=== PATIENT | female | born 1985 | race Two or more races ===

== ENCOUNTER 2017-08-07 14:14 | Emergency (ER) | payer SELFPAY ==
[~2017-08-07] VITALS: Ht 154.9 cm; Wt 79.4 kg
--- NOTE | 2017-08-07 14:35 | NUR ---
BBRA FROM HOME FOR VB, STARTED YESTERDAY S/P fall : 6 WEEKS . NAD NOTED, VSS, RESP EVEN AND UNLABORED, PT PUT ON HOSPITAL GOWN AND MONITOR, WAITING FOR MD OBRIEN.
--- NOTE | 2017-08-07 14:40 | NUR ---
CALLED [facility] [employer] [facility] [employer] [employer]PER[employer] FOR CONSULT
[2017-08-07 14:53] LABS: BASOPHILS % (AUTO) 0.4 % (0.0-2.0); EOSINOPHILS % (AUTO) 1.1 % (0.0-6.0); HEMATOCRIT 41 % (33-45); HEMOGLOBIN 13.9 g/dL (11.5-14.8); LYMPHOCYTES # (AUTO) 1.1 /CMM (0.8-4.8); LYMPHOCYTES % (AUTO) 34.5 % (20.0-44.0); MEAN CORPUSCULAR HEMOGLOBIN 29 PG (26.0-33.0); MEAN CORPUSCULAR HGB CONC 34 g/dl (31.0-36.0); MEAN CORPUSCULAR VOLUME 85 fL (82-100); MONOCYTES # (AUTO) 0.3 /CMM (0.1-1.30); MONOCYTES % (AUTO) 8.1 % (2.0-12.0); NEUTROPHILS # (AUTO) 1.9 /CMM (1.8-8.9); NEUTROPHILS % (AUTO) 55.9 % (43.0-81.0); PLATELET COUNT (AUTO) 111 /CMM (150-450); RED BLOOD CELL COUNT(AUTO) 4.83 MIL/uL (4.0-5.2); WHITE BLOOD COUNT (AUTO) 3.3 K/uL (4.3-11.0)
[2017-08-07 15:19] LABS: CALCIUM, SERUM 7.9 mg/dL (8.5-10.1); CREATININE 0.6 mg/dL (0.6-1.3); POTASSIUM 3.6 mmol/L (3.5-5.1)
[2017-08-07 15:34] LABS: ALBUMIN 3.3 g/dL (3.4-5.0); BILIRUBIN,TOTAL 0.5 mg/dL (0.2-1.0); TOTAL PROTEIN, SERUM 7.3 g/dL (6.4-8.2)
--- NOTE | 2017-08-07 16:00 | NUR ---
Social service consult requested by ER physician due to pt. being and drinking alcohol. Pt. is a 32 year old female who came to the ER for vaginal bleeding. JEREMIAS met with pt. bedside. Pt. is alert and oriented x 4. Pt's boyfriend Asia was bedside as well. Pt. stated she was 6 weeks and found out today that she lost the baby. However, per lab results pt's test was negative. Pt. states she drinks alcohol on a daily basis. Pt. drinks scotch and tequila daily. Pt. states she has been drinking alcohol since the age of [age]. Pt. has a diagnosis of Depression and Anxiety. Pt. currently takes Haldol, Ambien and Zolpidem. Pt. has a history of psychiatric hospitalizations and the most recent one was at [facility] a year ago. Pt. denies suicidal and homicidal ideations and visual/auditory hallucinations at this time. Pt. states she resides alone. Pt. has never been to any alcohol treatment programs in the past but is willing to get referrals. JEREMIAS encouraged pt. to go to detox and seek therapy. JEREMIAS gave pt. referrals to mental health clinics in [facility] and referrals to alcohol treatment and detox programs. JEREMIAS also gave pt. list of AA meetings. legal aide Edsel and VERNON Lou were updated regarding the referrals. No other social service needs are required at this time. SW is available if needed.
[2017-08-07 16:45] VITALS: BP 148/81
--- NOTE | 2017-08-07 16:51 | NUR ---
URINE SENT TO LAB
[2017-08-07 17:22] LABS: APPEARANCE,URINE TURBID (CLEAR); BILIRUBIN,URINE NEGATIVE (NEGATIVE); BLOOD, URINE 3+ Ery/uL (NEGATIVE); COLOR,URINE AMBER (YELLOW); KETONES,URINE NEGATIVE (NEGATIVE); LEUKOCYTE ESTERASE ,URINE NEGATIVE (NEGATIVE); NITRITE, URINE NEGATIVE (NEGATIVE); PH,URINE 8.5 (5.0-8.0); PROTEIN,URINE NEGATIVE (NEGATIVE); UGLUCOSE NEGATIVE (NEGATIVE)
[2017-08-07 17:32] LABS: BACTERIA,URINE Rare /HPF (None Seen); RBC,URINE TOO NUMEROUS TO COUN /HPF (0-2); SQUAMOUS EPITHELIAL CELL,UR Few /HPF (None Seen); WBC,URINE 0-2 /HPF (0-3)
--- NOTE | 2017-08-07 17:36 | NUR ---
Patient eloped from facility. ER MD notified.
== END 2017-08-07 17:39 | disposition left against medical advice (07) ==
LOC: ER 14:17
DX: O20.9 Hemorrhage in early pregnancy, unspecified (principal); O26.891 Other specified pregnancy related conditions, first trimester; R10.2 Pelvic and perineal pain; O99.341 Other mental disorders complicating pregnancy, first trimester; F41.9 Anxiety disorder, unspecified; O99.011 Anemia complicating pregnancy, first trimester; Z3A.01 Less than 8 weeks gestation of pregnancy
CPT/HCPCS: 36415; 76805; 80053; 81001; 83690; 84702; 84703 ×2; 85025; 99285; A4606; Z7610; 81000-TC